=== PATIENT | female | born 1985 | race Caucasian/White ===

== ENCOUNTER 2020-10-13 13:47 | Emergency (ER) | payer MEDICAID ==
[~2020-10-13] VITALS: Ht 149.9 cm; Wt 70.0 kg
[2020-10-13] MEDS ORDERED: IBUPROFEN 600MG TABLET PO ONE (14:45)
[2020-10-13] MEDS ORDERED: ALBUTEROL 6.7GM HFA INHALER ORI ONE (14:45)
[2020-10-13 14:56] LABS: BASOPHILS % 0.9 % (0.0-2.0); EOSINOPHILS % 2.8 % (0.0-5.0); HEMATOCRIT. 40.9 % (36.0-48.0); HEMOGLOBIN. 14.1 g/dL (12.0-16.0); LYMPHOCYTES % 24.5 % (20.0-50.0); MEAN CORPUSCULAR HEMOGLOBIN 30.6 pg (28.0-32.0); MEAN CORPUSCULAR VOLUME 88.5 fL (81.0-99.0); MEAN PLATELET VOLUME 8.4 fl (7.4-10.4); MONOCYTES % 7.1 % (2.0-8.0); NEUTROPHILS % 64.7 % (40.0-76.0); PLATELET 317 x1000/uL (130-400); RED BLOOD CELL COUNT 4.61 mill/uL (4.2-5.4); RED CELL DISTRIBUTION WIDTH 12.7 % (11.6-14.6)
[2020-10-13 14:58] LABS: CHLORIDE 104 mEq/L (98-107)
[2020-10-13 15:12] LABS: HCG SCREEN NEGATIVE
[2020-10-13 16:54] VITALS: BP 120/88
== END 2020-10-13 19:29 | disposition home or self-care (01) ==
LOC: ER 13:47
DX: U07.1 COVID-19 (principal); J45.901 Unspecified asthma with (acute) exacerbation; Z98.890 Other specified postprocedural states
CPT/HCPCS: 36415; 71045; 80053; 84703; 85025; 93005; 99285; C9803; U0003

== ENCOUNTER 2021-02-16 08:27 | Emergency (ER) | payer MEDICAID ==
[~2021-02-16] VITALS: Ht 149.9 cm; Wt 69.0 kg
[2021-02-16] MEDS ORDERED: CEPH500C2 MT (09:25)
[2021-02-16 09:30] VITALS: BP 135/79
[2021-02-16 10:22] LABS: CLARITY URINE CLEAR (CLEAR); COLOR URINE YELLOW (YELLOW); KETONES URINE NEGATIVE (NEGATIVE); LEUKOCYTE ESTERASE URINE NEGATIVE (NEGATIVE); NITRITE URINE NEGATIVE (NEGATIVE); OCCULT BLOOD URINE NEGATIVE (NEGATIVE); PH URINE 6.5 (4.5-8.0); PROTEIN URINE NEGATIVE (NEGATIVE); SPECIFIC GRAVITY URINE 1.007 (1.005-1.030); UROBILINOGEN URINE 0.2 E.U./dL (0.2-1.0)
== END 2021-02-16 09:36 | disposition home or self-care (01) ==
LOC: ER 08:36
DX: N30.00 Acute cystitis without hematuria (principal); E11.65 Type 2 diabetes mellitus with hyperglycemia; J45.909 Unspecified asthma, uncomplicated; Z98.890 Other specified postprocedural states; Z90.710 Acquired absence of both cervix and uterus; Z98.51 Tubal ligation status
CPT/HCPCS: 81003; 81025; 82962; 99283

== ENCOUNTER 2021-12-30 19:19 | Emergency (ER) | payer MEDICAID ==
[~2021-12-30] VITALS: Ht 149.9 cm; Wt 65.0 kg
[~2021-12-30 19:19] MED LIST: CEPH500C2 MT
[2021-12-30] MEDS ORDERED: ASPIRIN 325MG EC TABLET PO ONE (22:45)
[2021-12-30 23:44] LABS: BASOPHILS % 0.4 % (0.0-2.0); EOSINOPHILS % 2.9 % (0.0-5.0); HEMATOCRIT. 40.9 % (36.0-48.0); LYMPHOCYTES % 25.7 % (20.0-50.0); MEAN CORPUSCULAR HEMOGLOBIN 30.5 pg (28.0-32.0); MEAN CORPUSCULAR VOLUME 89.2 fL (81.0-99.0); MEAN PLATELET VOLUME 8.3 fl (7.4-10.4); MONOCYTES % 6.9 % (2.0-8.0); NEUTROPHILS % 64.1 % (40.0-76.0); PLATELET 320 x1000/uL (130-400); RED BLOOD CELL COUNT 4.59 mill/uL (4.2-5.4); RED CELL DISTRIBUTION WIDTH 13.2 % (11.6-14.6)
[2021-12-30 23:57] LABS: CLARITY URINE CLEAR (CLEAR); COLOR URINE YELLOW (YELLOW); KETONES URINE 1+ (NEGATIVE); LEUKOCYTE ESTERASE URINE NEGATIVE (NEGATIVE); NITRITE URINE NEGATIVE (NEGATIVE); OCCULT BLOOD URINE NEGATIVE (NEGATIVE); PROTEIN URINE NEGATIVE (NEGATIVE); SPECIFIC GRAVITY URINE 1.021 (1.005-1.030); UROBILINOGEN URINE 0.2 E.U./dL (0.2-1.0)
[2021-12-31] MEDS ORDERED: KETOROLAC 30MG/ML VIAL IV ONE
[2021-12-31] MEDS ORDERED: FAMOTIDINE 20MG/2ML VIAL IV SCH
[2021-12-31] MEDS ORDERED: MAGNESIUM/ALUMINUM HYDROXIDE/SIMETHICONE 30ML UDC PO ONE
[2021-12-31] MEDS ORDERED: ONDANSETRON HCL 4MG/2ML INJ IV ONE
[2021-12-31 00:06] LABS: CHLORIDE 104 mEq/L (98-107)
[2021-12-31 00:13] LABS: PHOSPHORUS 2.5 mg/dL (2.5-4.9)
[2021-12-31 00:17] LABS: HCG SCREEN NEGATIVE
[2021-12-31 00:21] LABS: *AMPHETAMINES SCREEN URINE NEGATIVE (NEGATIVE); *BARBITURATES SCREEN URINE NEGATIVE (NEGATIVE); *BENZODIAZEPINES SCREEN URINE NEGATIVE (NEGATIVE); *COCAINE SCREEN URINE NEGATIVE (NEGATIVE)
[2021-12-31 00:22] LABS: CANNABINOID URINE SCREEN NEGATIVE (NEGATIVE); METHADONE URINE SCREEN NEGATIVE (NEGATIVE); OPIATES URINE SCREEN NEGATIVE (NEGATIVE); PHENCYCLIDINE URINE SCREEN NEGATIVE (NEGATIVE)
[2021-12-31] MEDS ORDERED: POTASSIUM CHLORIDE 20MEQ TABLET SR PO ONE (00:45)
[2021-12-31 00:47] LABS: T4 FREE 0.97 ng/dL (0.76-1.46)
[2021-12-31] MEDS ORDERED: IBUP-2028 MT (01:42)
[2021-12-31 02:02] VITALS: BP 122/81
[2021-12-31] MEDS ORDERED: IOHEXOL-350 100 ML BOTTLE ONE (03:39)
== END 2021-12-31 02:12 | disposition home or self-care (01) ==
LOC: ER 19:19
DX: R07.2 Precordial pain (principal); E87.6 Hypokalemia; Z20.822 Contact with and (suspected) exposure to COVID-19; R00.0 Tachycardia, unspecified; J45.909 Unspecified asthma, uncomplicated
CPT/HCPCS: 36415; 71045; 71275; 80053; 80305; 81003; 83690; 83735; 83880; 84100; 84439; 84443; 84484; 84703; 85025; 85379; 87426; 87804; 93005; 96374; 96375; 99285; J1885; J2405; J3490; Q9967